=== PATIENT | female | born 1985 | race Hispanic/Latino ===

== ENCOUNTER 2018-07-30 08:50 | Emergency (ER) | payer MEDICAID, OTHER ==
[2018-07-30 09:17] LABS: #Basophils 0.1 thou/uL (0.0-0.2); #Eosinphils 0.3 thou/uL (0.0-0.7); #Lymphocytes 2.3 thou/uL (1.20-3.40); #Monocytes 0.6 thou/uL (0.11-0.59); #Neutrophils 5.2 thou/uL (1.40-6.50); %Eosinophils 3.3 % (0.0-10.0); %Lymphocytes 27.3 % (21.0-51.0); %Monocytes 6.8 % (0.0-10.0); %Neutrophils 61.6 % (42.0-75.0); Hemoglobin 14.2 g/dL (12.0-16.0); Mean Corpuscular HGB CONC 34.5 g/dL (32.0-36.0); Mean Corpuscular Hemoglobin 31.2 pg (27.0-31.0); Mean Corpuscular Volume 90.6 fL (78.0-98.0); Mean Platelet Volume 7.1 fL (7.4-10.4); Platelet Count 294 thou/uL (130-400); RBC Distribution Width 11.1 % (11.5-14.5); Red Blood Cell (RBC) Count 4.56 mill/uL (4.20-5.40); White Blood Cell (WBC) Count 8.4 thou/uL (4.8-10.8)
[2018-07-30] MEDS ORDERED: Acetaminophen 500 MG TAB ONE (09:41)
--- NOTE | 2018-07-30 11:08 | ULT ---
ULTRASOUND PELVIC ULTRASOUND TRANSVAGINAL DOPPLER DUPLEX: DATE: 07/30/2018. HISTORY: A 32-year-old female in 1st trimester of who presents with vaginal bleeding and cr amping pelvic pain. Rule out ectopic . TECHNIQUE: Transabdominal transducer used to evaluate intrapelvic contents using the urinary bladder as an acous tic window. Endovaginal transducer used to visualize intrapelvic contents in greater detail. Color fl ow Doppler and Pulsed Doppler spectral waveform analysis of ovaries. FINDINGS: Uterus: 9.5 x 4.5 x 4.5 cm. Endometrial stripe: 1.1 cm (11 mm) at fundus. At the lower uterine segment/cervix, there is a cystic structure within the lower endometrial stripe, that has the appearance of an abnormally small gestational sac, with sac diameter of 0.7 cm, which w ould correspond to 5 w 3 d gestational age. Within it, there is a yolk sac that measures approximate ly 0.3 cm. There is an embryonic pole with crown-rump length of 0.4 cm, corresponding to 6 w 1 d. No embryonic cardiac activity is visualized. No evidence of subchorionic hemorrhage. No free fluid in the cul-de-sac. No evidence of corpus luteal cyst. Right ovary: 2.5 x 3 x 2 cm. Left ovary: 2.5 x 3.5 x 2 cm. Blood flow demonstrated into both ovaries by Doppler. No ectopic gestation identified. IMPRESSION: 1. Evidence for 1st trimester spontaneous in progress. 2. Recommend followup serum beta HCG, which would dictate whether followup pelvic and transvaginal u ltrasound is warranted. GILBERTO Martinez POS: SAM
[2018-07-30 11:40] LABS: Blood, Urine Large (Negative); Glucose, Urine (Dipstick) Negative (Negative); Protein, Urine (Dipstick) 100 mg/dL (Neg-Trace); Urobilinogen 0.2 mg/dL (0.2-1.0)
[2018-07-30 11:42] LABS: Clarity Cloudy (Clear)
[2018-07-30 11:47] LABS: Nitrite Negative (Negative); Specific Gravity, Urine 1.008 (1.002-1.036)
[2018-07-30 11:48] LABS: Bilirubin Unable to Interpret (Negative); Leukocyte Small (Negative); RBC/HPF GREATER THAN 50-TNTC HPF (0-3)
[2018-07-30 11:49] LABS: Bacteria/HPF None Seen HPF (None Seen); Hyaline Casts/LPF NONE SEEN LPF (0-3 Hyaline)
== END 2018-07-30 11:26 | disposition home or self-care (01) ==
LOC: ERS 08:50
DX: O03.4 Incomplete spontaneous abortion without complication (principal)
CPT/HCPCS: 36415; 76856; 81003; 81015; 84702; 85025; 86900; 86901

== ENCOUNTER 2019-08-25 10:42 | Inpatient (IN) | payer OTHER ==
[~2019-08-25 10:42] MED LIST: Bupivacaine 0.25% HCL 30 ML VIAL ONE
[2019-08-25] MEDS ORDERED: Diphenoxylate HCl/Atropine Tablet PO PRN ×2 (10:52)
[2019-08-25] MEDS ORDERED: Ondansetron PF 4 MG/2 ML Vial IVP PRN ×3 (10:52→18:53)
[2019-08-25] MEDS ORDERED: Docusate 100 MG CAP PO PRN (10:52)
[2019-08-25] MEDS ORDERED: NS / Oxytocin 40 units/1000ml 1,000 ML IV PRN (10:52)
[2019-08-25] MEDS ORDERED: HYDROcodone/Acetaminophen 5/325 mg Tablet PO PRN ×2 (10:52)
[2019-08-25] MEDS ORDERED: Ibuprofen 800 MG TAB PO PRN (10:52)
[2019-08-25] MEDS ORDERED: Lidocaine 1% (PF) 30 ML VIAL SC PRN (10:52)
[2019-08-25] MEDS ORDERED: Promethazine HCl 25 MG/ML VIAL IM PRN ×2 (10:52→14:12)
[2019-08-25] MEDS ORDERED: Acetaminophen 500 MG TAB PO PRN (10:52)
[2019-08-25] MEDS ORDERED: Butorphanol Tartrate 1 MG/ML VIAL SLOW IVP PRN (10:52)
[2019-08-25] MEDS ORDERED: Misoprostol 200 MCG TAB PR PRN (10:52)
[2019-08-25] MEDS ORDERED: hydrALAZINE 20 MG/ML VIAL SLOW IVP PRN ×2 (10:52→18:53)
[2019-08-25] MEDS ORDERED: Lactated Ringer's 1,000 ML IV SCH (11:00)
[2019-08-25 11:50] VITALS: BMI 30.5
[2019-08-25 12:18] LABS: Mean Corpuscular HGB CONC 33.2 g/dL (32.0-36.0); Mean Corpuscular Volume 87.4 fL (78.0-98.0); Mean Platelet Volume 9.9 fL (7.4-10.4); Platelet Count 239 thou/uL (130-400); RBC Distribution Width 12.7 % (11.5-14.5); Red Blood Cell (RBC) Count 4.15 mill/uL (4.20-5.40); White Blood Cell (WBC) Count 9.6 thou/uL (4.8-10.8)
[2019-08-25 12:57] LABS: Syphilis Antibody Nonreactive (Nonreactive); Syphilis Antibody Index 0.04 S/CO (<1.00 Non-Reactive)
[2019-08-25 12:58] LABS: HBSAg Index 0.23 S/CO (0-0.99); Hep B Surf Ag Non-Reactive S/CO (NonReactive)
[2019-08-25] MEDS ORDERED: Fentanyl 4 mcg/Bup 0.1% Cadd 100 ML ONE (13:01)
[2019-08-25] MEDS ORDERED: diphenhydrAMINE 50 MG/ML VIAL IVP PRN (14:12)
[2019-08-25] MEDS ORDERED: Acetaminophen 325 MG TAB PO PRN (14:12)
[2019-08-25] MEDS ORDERED: Naloxone HCl 0.4 mg/ml Vial IVP PRN ×2 (14:12)
[2019-08-25] MEDS ORDERED: ePHEDrine/0.9% NaCl/PF SYRINGE 50 mg/10 ml SLOW IVP PRN (14:12)
[2019-08-25] MEDS ORDERED: Lactated Ringer's 500 ML IV PRN (14:12)
[2019-08-25] MEDS ORDERED: Communication Order-Pharmacy FS PRN (14:15)
[2019-08-25] MEDS ORDERED: Fentanyl 4 mcg/Bupivacaine 0.1% Cassette 100 ML EPIDURAL SCH (14:15)
[2019-08-25] MEDS ORDERED: NS w/ Oxytocin 10 units 500 ML ONE (16:39)
[2019-08-25] MEDS ORDERED: Acetaminophen/Codeine 30-300mg Tablet PO PRN (18:53)
[2019-08-25] MEDS ORDERED: Bisacodyl 10 MG SUPP PR PRN (18:53)
[2019-08-25] MEDS ORDERED: diphenhydrAMINE 25 MG CAP PO PRN (18:53)
[2019-08-25] MEDS ORDERED: Lanolin Ointment 7 GM TUBE TOP PRN (18:53)
[2019-08-25] MEDS ORDERED: Benzocaine-Menthol 82.5 ML CAN TOP PRN (18:53)
[2019-08-25] MEDS ORDERED: Misoprostol 200 MCG TAB VAG PRN (18:53)
[2019-08-25] MEDS ORDERED: Zolpidem Tartrate 5 MG TAB PO PRN (18:53)
[2019-08-25] MEDS ORDERED: Milk Of Magnesia 30 ML UDCUP PO PRN (18:53)
[2019-08-25] MEDS ORDERED: Preparation H Ointment 28 GM TUBE PR PRN (18:53)
[2019-08-25] MEDS ORDERED: NS / Oxytocin 40 units/1000ml 1,000 ML IV SCH (19:00)
[2019-08-25] MEDS: Docusate Calcium (SURFAK) 240 MG CAP PO SCH (22:25)
[2019-08-25] MEDS: Acetaminophen/Codeine 30-300mg Tablet PO PRN (22:26)
[2019-08-25] MEDS: Ibuprofen 800 MG TAB PO SCH (22:26)
[2019-08-26] MEDS: Ibuprofen 800 MG TAB PO SCH ×3 (06:04→21:51)
[2019-08-26] MEDS: Ferrous Sulfate 325 MG TAB PO SCH ×2 (08:31→19:00)
[2019-08-26] MEDS: Prenatal Vitamin 1 TAB PO SCH (08:56)
[2019-08-26] MEDS: Docusate Calcium (SURFAK) 240 MG CAP PO SCH ×2 (08:57→21:51)
[2019-08-26] MEDS ORDERED: Adacel (T-DAP) 0.5 ML SYRINGE IM ONE (09:00)
[2019-08-26] MEDS: Acetaminophen/Codeine 30-300mg Tablet PO PRN (11:19)
[2019-08-27] MEDS: Ibuprofen 800 MG TAB PO SCH ×2 (05:52→13:45)
[2019-08-27 08:02] VITALS: BP 120/63; TEMP 98.3
[2019-08-27] MEDS: Prenatal Vitamin 1 TAB PO SCH (10:10)
[2019-08-27] MEDS: Docusate Calcium (SURFAK) 240 MG CAP PO SCH (10:10)
[2019-08-27] MEDS: Ferrous Sulfate 325 MG TAB PO SCH (10:11)
== END 2019-08-27 14:35 | disposition home or self-care (01) | DRG 807 ==
LOC: L&D 10:42 → 3SW 21:52 → EDSTATUS 09-02 11:38
PROVIDERS: ADMIT Obstetrics & Gynecology; ATTEND Obstetrics & Gynecology
PROC: 10E0XZZ Delivery of Products of Conception, External Approach (ICD-10-PCS; principal; 2019-08-25)
DX: O80 Encounter for full-term uncomplicated delivery (principal); Z37.0 Single live birth; Z3A.38 38 weeks gestation of pregnancy
CPT/HCPCS: 51702; 85027; 86780; 86850; 86900; 86901; 87340; J2590; S0020

== ENCOUNTER 2020-10-24 15:50 | Outpatient (CLI) | payer OTHER | END 2020-10-24 15:51 | disposition home or self-care (01) | LOC: BICRAD 15:50 | PROVIDERS: ATTEND Physician Assistant | DX: R20.2 Paresthesia of skin (principal) | CPT/HCPCS: 72050 ==

== ENCOUNTER 2020-11-02 15:33 | Emergency (ER) | payer OTHER ==
[2020-11-02 16:13] LABS: #Lymphocytes 1.6 thou/uL (1.20-3.40); #Monocytes 0.2 thou/uL (0.11-0.59); #Neutrophils 7.9 thou/uL (1.40-6.50); %Basophils 0.3 % (0.0-1.0); %Eosinophils 0.2 % (0.0-10.0); %Lymphocytes 16.3 % (21.0-51.0); %Monocytes 1.7 % (0.0-10.0); %Neutrophils 81.5 % (42.0-75.0); Hemoglobin 14.3 g/dL (12.0-16.0); Mean Corpuscular HGB CONC 33.7 g/dL (32.0-36.0); Mean Corpuscular Hemoglobin 31.6 pg (27.0-31.0); Mean Corpuscular Volume 93.7 fL (78.0-98.0); Mean Platelet Volume 7.5 fL (7.4-10.4); Platelet Count 274 thou/uL (130-400); Red Blood Cell (RBC) Count 4.53 mill/uL (4.20-5.40); White Blood Cell (WBC) Count 9.7 thou/uL (4.8-10.8)
[2020-11-02 16:37] LABS: ALT (SGPT) 88 U/L (8-55); AST (SGOT) 55 U/L (5-34); Albumin 4.3 g/dL (3.5-5.0); Alkaline Phosphatase 75 U/L (40-110); Anion Gap 13 mmol/L (10-20); BUN (Urea Nitrogen) 11 mg/dL (7.0-18.7); Bilirubin, Total 0.8 mg/dL (0.2-1.2); Calc. Creatinine Clearance 0 mL/min (70-130); Calcium 9.2 mg/dL (7.8-10.44); Carbon Dioxide 18 mmol/L (22-29); Chloride 108 mmol/L (98-107); Globulin 3.2 g/dL (2.4-3.5); Glucose 121 mg/dL (70-105); Potassium 3.7 mmol/L (3.5-5.1); Protein, Total 7.5 g/dL (6.0-8.3); Sodium 135 mmol/L (136-145)
== END 2020-11-02 17:35 | disposition home or self-care (01) ==
LOC: ERS 15:33
DX: R20.2 Paresthesia of skin (principal); Z79.899 Other long term (current) drug therapy
CPT/HCPCS: 36415; 70450; 80053; 85025